=== PATIENT | male | born 1970 ===

== ENCOUNTER 2017-11-30 21:36 | Emergency (ER) | payer OTHER ==
--- NOTE | 2017-11-30 21:42 | ER Report ---
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 He was sent by the ER thereafter evaluation with a CAT scan for left testicular and back pain. Patient had a negative CT scan. His vital signs were unremarkable. His laboratory studies were unremarkable. His urine only had a few white cells. Patient's had severe left testicular pain, requiring 8 mg of morphine. Patient was sent for ultrasound of his testicles which was unavailable at [facility]. REVIEW OF SYSTEMS: Respiratory: No cough, no dyspnea. Cardiovascular: No chest pain, no palpitations. Gastrointestinal: As above Musculoskeletal: No back pain. Allergies: Coded Allergies: No Known Drug Allergies (Unverified , 11/30/17) Home Meds Active Scripts Doxycycline Hyclate (DOXYCYCLINE HYCLATE) 100 Mg Capsule, 100 MG PO BID for infection, #20 CAPSULE Prov:LINDA DUPREE 11/30/17 Ondansetron Hcl (ZOFRAN) 4 Mg Tablet, 4 MG PO Q6H Y for NAUSEA/VOMITING, #10 Prov:LINDA DUPREE DO 11/30/17 Oxycodone Hcl/Acetaminophen (PERCOCET 5-325 MG TABLET) 1 Each Tablet, 1-2 EACH PO Q4-6H Y for PAIN, #15 Prov:LINDA DUPREE DO 11/30/17 Reported Medications Quetiapine Fumarate (SEROQUEL) 100 Mg Tablet, 100 MG PO 11/30/17 Omeprazole (OMEPRAZOLE) 40 Mg Capsule.dr, 40 MG PO QDAY, CAP 11/30/17 Potassium Gluconate (Potassium) 600 Mg (99 Mg) Tablet 11/30/17 [Insulin 70/30 Bid] No Conflict Check 11/30/17 Hydrochlorothiazide (HYDROCHLOROTHIAZIDE) 25 Mg Tablet, 1 TAB PO QDAY, TAB 11/30/17 Metformin Hcl (METFORMIN HCL) 1,000 Mg Tablet, 1 TAB PO QDAY, TAB 11/30/17 Reviewed Nurses Notes: Yes Old Medical Records Reviewed: Yes Constitutional Vital Sign - Last 24 Hours 11/30/17 11/30/17 11/30/17 11/30/17 21:41 21:42 21:45 21:51 Temp 98.5 Pulse 120 106 Resp 20 B/P (MAP) 159/122 (134) 159/122 174/104 (127) Pulse Ox 92 93 O2 Delivery Room Air 11/30/17 11/30/17 11/30/17 11/30/17 22:00 22:06 22:21 22:30 Pulse 114 103 Resp 14 13 B/P (MAP) 143/102 (116) 132/95 (107) Pulse Ox 88 95 11/30/17 11/30/17 11/30/17 11/30/17 22:36 22:51 23:00 23:06 Pulse 106 113 108 Resp 9 13 9 B/P (MAP) 137/101 (113) Pulse Ox 96 96 94 11/30/17 11/30/17 11/30/17 12/01/17 23:21 23:40 23:45 00:06 Pulse 115 111 85 Resp 9 43 16 B/P (MAP) 133/115 (121) 132/85 (101) Pulse Ox 94 95 O2 Delivery Room Air Physical Exam General Appearance: The patient is alert, has no immediate need for airway protection and no current signs of toxicity. Vital signs stable, afebrile, pulse ox normal Eyes: Pupils equal and round no injection. Respiratory: Chest is non tender, lungs are clear to auscultation. Cardiac: regular rate and rhythm Gastrointestinal: Abdomen is soft and non tender, no masses, bowel sounds normal. Genital: Circumcised male with extremely tender left testicle. There is no testicular swelling., No inguinal adenopathy, no hernias, Musculoskeletal: Neck: Neck is supple and non tender. Extremities have full range of motion and are non tender. Skin: No rashes or lesions. DIFFERENTIAL DIAGNOSIS: After history and physical exam differential diagnosis was considered for testicular pain including but not limited to epididymitis, orchitis, referred pain from kidney stone, inguinal hernia, infection and torsion of the testicle. Medical Decision Making EKG/Imaging Imaging Results: Ultrasound of the testicular ultrasound was obtained. The results of the study are SCROTAL ULTRASOUND INDICATION: Left testicular pain. COMPARISON: None available. FINDINGS: Right testicle measures 3.9 x 2.4 x 3.6 cm in cc, AP, and transverse dimensions respectively. There is normal arterial and venous blood flow. No evidence of hydrocele. No varicocele identified. The right epididymal head measures 1.1 cm. Left testicle measures 4.0 x 2.2 x 3.1 cm in cc, AP, and transverse dimensions respectively. There is normal arterial and venous blood flow. There is a small hydrocele. No varicocele identified. The left epididymal head measures 1.5 cm. There is a small epididymal head cyst measuring 3 mm. The testicles appear symmetric in echogenicity. There are scattered punctate calcifications compatible with microlithiasis. IMPRESSION: 1. No evidence of testicular torsion. 2. Testicular microlithiasis. Follow-up ultrasound recommended in 12 months. 3. Trace left-sided hydrocele. The study was read by the radiologist. I viewed the images myself on the PACS system. ED Course/Re-evaluation ED Course Patient was admitted to an examination room. Records from [place] ER visit were reviewed. Diagnostic studies are reviewed. A testicular ultrasound was ordered. The results were unremarkable for testicular torsion. There was a left hydrocele. Patient admitted upon further history gathering that his partner had Trichomonas 2 weeks ago. Patient was treated metronidazole 2 g by mouth. Rocephin 1 g IV. Patient be discharged on doxycycline, prescription for Percocet Decision to Disposition Date: Nov 30, 2017 Decision to Disposition Time: 23:18 Depart Departure Latest Vital Signs Vital Signs Date Time Temp Pulse Resp B/P (MAP) Pulse Ox O2 Delivery O2 Flow Rate FiO2 12/01/17 00:06 85 16 132/85 (101) 95 Room Air 11/30/17 21:42 98.5 Impression: Primary Impression: Left testicular pain Additional Impression: Left hydrocele Condition: Improved Disposition: HOME OR SELF-CARE New Scripts Doxycycline Hyclate (DOXYCYCLINE HYCLATE) 100 Mg Capsule 100 MG PO BID for infection, #20 CAPSULE Prov: LINDA DUPREE DO 11/30/17 Ondansetron Hcl (ZOFRAN) 4 Mg Tablet 4 MG PO Q6H Y for NAUSEA/VOMITING, #10 Prov: LINDA DUPREE DO 11/30/17 Oxycodone Hcl/Acetaminophen (PERCOCET 5-325 MG TABLET) 1 Each Tablet 1-2 EACH PO Q4-6H Y for PAIN, #15 Prov: LINDA DUPREE DO 11/30/17 Patient Instructions: Epididymitis (ED) Additional Instructions: Follow-up with her primary care doctor or a urologist upon returning home to [facility] Problem Qualifiers LINDA DUPREE DO Nov 30, 2017 21:41
[2017-11-30] MEDS ORDERED: METF-420 PO (21:47)
[2017-11-30] MEDS ORDERED: INSULIN (21:48)
[2017-11-30] MEDS ORDERED: HYDR-2966 PO (21:48)
[2017-11-30] MEDS ORDERED: OMEP40CA48 PO (21:49)
[2017-11-30] MEDS ORDERED: POTA99TA10 (21:49)
[2017-11-30] MEDS ORDERED: HYDROmorphone* 1 MG/ML 1 MG/ML ML IVP ONE ×2 (21:50→23:10)
[2017-11-30] MEDS ORDERED: QUET100T29 PO (21:50)
[2017-11-30] MEDS ORDERED: ONDANSETRON 4 MG/2 ML VIAL IVP ONE (22:05)
[2017-11-30] MEDS ORDERED: PROMETHAZINE 25 MG/ML 1 ML AMP IVP ONE (22:05)
--- NOTE | 2017-11-30 23:06 | RADIOLOGY IMAGING REPORT ---
FACILITY: [facility] [place] PATIENT NAME: Josiah Burt : 1970 MR: [id number] V: [id number] EXAM DATE: ORDERING PHYSICIAN: LINDA DUPREE TECHNOLOGIST: Location: [facility] Patient: Josiah Burt : 1970 Visit/Account:[id number] Date of Sevice: 11/30/2017 SCROTAL ULTRASOUND INDICATION: Left testicular pain. COMPARISON: None available. FINDINGS: Right testicle measures 3.9 x 2.4 x 3.6 cm in cc, AP, and transverse dimensions respectively. There is normal arterial and venous blood flow. No evidence of hydrocele. No varicocele identified. The right epididymal head measures 1.1 cm. Left testicle measures 4.0 x 2.2 x 3.1 cm in cc, AP, and transverse dimensions respectively. There is normal arterial and venous blood flow. There is a small hydrocele. No varicocele identified. The left epididymal head measures 1.5 cm. There is a small epididymal head cyst measuring 3 mm. The testicles appear symmetric in echogenicity. There are scattered punctate calcifications compatibl e with microlithiasis. IMPRESSION: 1. No evidence of testicular torsion. 2. Testicular microlithiasis. Follow-up ultrasound recommended in 12 months. 3. Trace left-sided hydrocele. Report Dictated By: Cuate Peoples at 11/30/2017 10:54 PM Report E-Signed By: Cuate Peoples at 11/30/2017 11:03 PM WSN:[id number]
[2017-11-30] MEDS ORDERED: KETOROLAC 30 MG/ML VIAL IVP ONE (23:15)
[2017-11-30] MEDS ORDERED: cefTRIAXone(*) 1 GM VIAL 1 GM in NS(*) 0.9% 100 ML ADDVANT BAG 100 ML IVPB ONE (23:15)
[2017-11-30] MEDS ORDERED: CEFU500T10 PO (23:21)
[2017-11-30] MEDS ORDERED: OXYC-865 PO (23:21)
[2017-11-30] MEDS ORDERED: ONDA4TAB97 PO (23:21)
[2017-11-30] MEDS ORDERED: METRONIDAZOLE 500 MG TABLET PO ONE (23:25)
[2017-11-30] MEDS ORDERED: DOXY-181 PO (23:27)
[2017-11-30] MEDS ORDERED: oxyCODONE/ACETAMIN 5/325MG TH 2 TAB/BOTTLE PO ONE (23:30)
[2017-11-30] MEDS ORDERED: PANTOPRAZOLE SOD 40 MG TABEC PO ONE (23:45)
[2017-12-01 00:06] VITALS: BP 132/85
== END 2017-12-01 00:10 | disposition home or self-care (01) ==
LOC: ER 21:52
DX: N43.3 Hydrocele, unspecified (principal)
CPT/HCPCS: 76870; 96365; 96375; 99284; J0696; J1170; J1885; J2405; J2550; J7050